=== PATIENT | female | born 1965 | race Caucasian/White ===

== ENCOUNTER 2019-02-02 11:48 | Inpatient (IN) | payer MEDICARE, MEDICAID ==
[2019-02-02] MEDS ORDERED: Sodium Chloride 0.9% 1,000 ML IV ONE (11:57)
--- NOTE | 2019-02-02 12:01 | ED Physician Chart ---
ED Chief Complaint/HPI - Patient Information Date Seen:: 02/02/19 Time Seen:: 11:45 Chief Complaint:: AMS History of Present Illness:: onset x one day of AMS, ALOC, fever, and weakness; no report of trauma, H/As, neck pain, C/P, SOB, Abd. Pain, A/N/V/D/C, chills, or urinary s/s Allergies:: Allergies Allergy/AdvReac Type Severity Reaction Status Date / Time MDX Ampicillin [Ampicillin] Allergy Unknown Verified 05/23/12 13:30 MDX Erythromycin Allergy Unknown Verified 05/23/12 13:04 [Erythromycin] Historian:: Patient, EMS Review:: Nurse's Note Reviewed, Old Chart Reviewed, EMS run form Reviewed ED Review of Systems - Review of Systems General/Constitutional: No fever, No chills, No weight loss, Weakness, No diaphoresis, No edema, No loss of appetite Skin: No skin lesions, No rash, No bruising Head: No headache, No light-headedness Eyes: No loss of vision, No pain, No diplopia ENT: No earache, No nasal drainage, No sore throat, No tinnitus Neck: No neck pain, No swelling, No thyromegaly, No stiffness, No mass noted Cardio Vascular: No chest pain, No palpitations, No PND, No orthopnea, No edema Pulmonary: No SOB, No cough, No sputum, No wheezing GI: No nausea, No vomiting, No diarrhea, No pain, No melena, No hematochezia, No constipation, No hematemesis G/U: No dysuria, No frequency, No hematuria [employer]: No vaginal discharge, No abnormal vaginal bleed, No contraction Musculoskeletal: No bone or joint pain, No back pain, No muscle pain Endocrine: No polyuria, No polydipsia Psychiatric: No prior psych history, No depression, No anxiety, No suicidal ideation, No homicidal ideation, No auditory hallucination, No visual hallucination Hematopoietic: No bruising, No lymphadenopathy Allergic/Immuno: No urticaria, No angioedema Neurological: No syncope, No focal symptoms, No weakness, No paresthesia, No headache, No seizure, No dizziness, No confusion, No vertigo ED Past Medical History - Past Medical History Obtainable: Yes Past Medical History: Dementia (CP) Family History: HTN Social History: Non Smoker, No Alcohol, No Drug Use, Single, Care Facility Surgical History: None Psychiatricy History: Dementia Medication: Reviewed Family Medical History - Family Member Mother History Unknown: Yes ED Physical Exam - Physical Examination General/Constitutional: Awake, Well-developed, well-nourished, Alert, No distress, GCS 15, Non-toxic appearing, Ambulatory Head: Atraumatic Eyes: Lids, conjuctiva normal, PERRL, EOMI Skin: Nl inspection, No rash, No skin lesions, No ecchymosis, Well hydrated, No lymphadenopathy ENMT: External ears, nose nl, TM canals nl, Nasal exam nl, Lips, teeth, gums nl , Oropharynx nl, Tonsils nl Neck: Nontender, Full ROM w/o pain, No JVD, No nuchal rigidity, No bruit, No mass, No stridor Respiratory: Nl effort/Exclusion, Clear to Auscultation, No Wheeze/Rhonchi/Rales Cardio Vascular: RRR, No murmur, gallop, rubs, NL S1 S2, Carotid/Femoral/Distal pulses equal bilaterally GI: No tenderness/rebounding/guarding, No organomegaly, No hernia, Normal BS's, Nondistended, No mass/bruits, No McBurney tenderness : No CVA tenderness Extremities: No tenderness or effusion, Full ROM, normal strength in all extremities, No edema, Normal digits & nails Neuro/Psych: Alert/oriented, DTR's symmetric, Normal sensory exam, Normal motor strength, Judgement/insight normal, Mood normal, Normal gait, No focal deficits Misc: Normal back, No paraspinal tenderness ED Labs/Radiology/EKG Results - Lab Results Comments:: Reviewed - EKG Interpretations EKG Time:: 12:08 Rate & Rhythm: 102; ST Comments:: non-specific st-t changes ED Septic Shock - . Is Septic Shock (SBP<90, OR Lactate>4 mmol\L) present?: No ED Reassessment (Disposition) - Reassessment Reassessment Condition:: Improved - Diagnosis Diagnosis:: AMS; ALOC; Hypertension; Dehydration; UTI; Urosepsis; Sepsis; Elevated Lactic Acid; Lactic Acidosis; Hyponatremia; Tachycardia - Aftercare/Follow up Instructions Aftercare/Follow-Up Instructions:: Counseled pt regarding lab results/diagnosis & need follow up, Counseled pt & family regarding lab results/diagnosis & need follow up - Patient Disposition Discharge/Transfer:: Acute Care w/in this hosp Accepting Physician:: Dr. Robles Time Called:: [id number] Time Responded:: 13:30 Admitted to:: Med/Surg Spoke to:: Dr. Robles Admitting Medical Physician:: Dr. Robles Condition at Disposition:: Stable, Improved
[2019-02-02 12:34] LABS: INR 0.91 (0.5-1.4)
[2019-02-02 12:40] LABS: ALB/GLOB RATIO 1.4 (1.0-1.8); ALBUMIN 4.4 gm/dL (3.7-5.3); ALKALINE PHOSPHATASE 176 U/L (34-104); AMYLASE SERUM 79 U/L (29-103); ANION GAP 14.9 (7.0-16.0); BILIRUBIN,TOTAL 0.5 mg/dL (0.3-1.0); BUN - UREA NITROGEN 8 mg/dL (7-25); CALCIUM SERUM 9.7 mg/dL (8.6-10.3); CARBON DIOXIDE 25.2 mEq/L (21.0-31.0); CHLORIDE 95 mEq/L (98-107); CREATININE - SERUM 0.4 mg/dL (0.6-1.2); CREATININE KINASE 28 U/L (30-223); GFR AFRICAN-AMERICAN > 60.0 ml/min (>90); GFR NON AFRICAN-AMERICAN > 60.0 ml/min; GLUCOSE 103 mg/dL (70-105); LIPASE 24 U/L (11-82); POTASSIUM SERUM 4.1 mEq/L (3.5-5.1); SGOT 11 U/L (13-39); SGPT/ALT 34 U/L (7-52); TOTAL PROTEIN,SERUM 7.6 gm/dL (6.0-8.3)
[2019-02-02 12:54] LABS: % BASOPHILS 1.3 % (0.0-2.0); % EOSINOPHILS 0.5 % (0.0-5.0); % LYMPHOCYTES 35.6 % (20.0-50.0); % MONOCYTES 10.3 % (2.0-10.0); % NEUTROPHILS 52.3 % (40.0-80.0); BASOPHILE ABSOLUTE 0.1 Th/cumm (0-0.2); HEMATOCRIT 43.1 % (41.0-60); HEMOGLOBIN 14.7 gm/dL (12-16); LYMPHOCYTE ABSOLUTE 1.7 Th/cmm (1.5-3.0); MEAN CELL VOLUME 89.9 fl (81-100); MEAN CORPUSCULAR HEMOGLOBIN 30.7 pg (27.0-31.0); MEAN CORPUSCULAR HGB CONC 34.2 pg (28.0-36.0); MONOCYTE ABSOLUTE 0.5 Th/cmm (0.3-1.0); NEUTROPHILE ABSOLUTE 2.6 Th/cmm (1.8-8.0); PLATELET COUNT 249 Th/cmm (150-400); RED BLOOD COUNT 4.79 Mil/cmm (3.80-5.10); RED CELL DISTRIBUTION WIDTH 11.2 % (11.5-20.0); WHITE BLOOD COUNT 4.9 Th/cmm (4.8-10.8)
[2019-02-02 12:59] LABS: SODIUM SERUM 131 mEq/L (136-145)
[2019-02-02 13:19] LABS: URINE SOURCE MIDSTREAM
[2019-02-02 13:27] LABS: URINE BILIRUBIN NEGATIVE (NEGATIVE); URINE BLOOD NEGATIVE (NEGATIVE); URINE GLUCOSE (UA) NEGATIVE (NEGATIVE); URINE KETONE NEGATIVE (NEGATIVE); URINE LEUKOCYTE ESTERASE TRACE (NEGATIVE); URINE MICROSCOPIC INDICATED? YES; URINE NITRATE NEGATIVE (NEGATIVE); URINE PROTEIN NEGATIVE (NEGATIVE); URINE UROBILINOGEN 0.2 E.U./dL (0.2 - 1.0)
[2019-02-02 13:41] LABS: URINE CLARITY TURBID (CLEAR); URINE COLOR YELLOW
[2019-02-02 13:45] LABS: URINE BACTERIA MANY /hpf (NONE SEEN); URINE EPITHELIAL CELLS FEW /lpf (FEW); URINE RBC NONE SEEN /hpf (0-5)
[2019-02-02 13:46] LABS: URINE AMORPHOUS SEDIMENT MODERATE PHOSPHATES (NONE SEEN)
[2019-02-02] MEDS ORDERED: Levofloxacin 500mg/100mL 500 MG/100 ML BAG IV ONE ×2 (13:49→13:53)
[2019-02-02] MEDS ORDERED: Magnesium Hydroxide (MOM) 30 mL UDC GT PRN (15:21)
[2019-02-02] MEDS ORDERED: Non-Formulary Item 1 EA (Acetaminophen [Tylenol] 650 MG) GT PRN (15:21)
[2019-02-02] MEDS ORDERED: Fleet Enema 135 mL RC ONE (15:21)
[2019-02-02] MEDS ORDERED: Morphine Sulfate 2 mg/mL 1mL Syr IVP PRN (15:25)
[2019-02-02] MEDS ORDERED: Albuterol Nebulizer 2.5mg/3mL HHN PRN (15:25)
[2019-02-02] MEDS ORDERED: guaiFENesin 200 MG/10 ML UDC PO PRN (15:25)
[2019-02-02] MEDS ORDERED: Ipratropium Neb 0.5 mg/2.5 mL UD IH PRN (15:25)
--- NOTE | 2019-02-02 15:56 | History & Physical ---
ADMIT DATE: 02/02/2019 CHIEF COMPLAINT: Abdominal pain and fever. HISTORY OF PRESENT ILLNESS: This is a 58-year-old female with history of mental retardation, cerebral palsy, seizure disorder, constipation admitted from nursing facility secondary to abdominal pain and discomfort. The patient recently had an ultrasound, which showed a gallstone. The patient is brought in the ER for evaluation of urinary tract infection as well with elevated lactic acid. PAST MEDICAL HISTORY: As mentioned in history present illness. PAST SURGICAL HISTORY: G-tube. ALLERGIES: AMPICILLIN AND ERYTHROMYCIN. MEDICATIONS: Clindamycin, Tylenol, calcitonin, calcium, Colace, omeprazole, lactobacillus, Keppra, multivitamins, Naprosyn, Tegretol, MiraLax, vitamin D. FAMILY HISTORY: Noncontributory. SOCIAL HISTORY: The patient is a prison patient, requiring 24-hour total care. REVIEW OF SYSTEMS: This is limited secondary to the patient's current mental state. We will try to obtain more detailed review of system with the family members, Caro Watts who is the mother____, I spoken with her several times [phone], alternate number [phone]_. We will also try to get information from nursing staff at [facility], _[phone]. PHYSICAL EXAMINATION: VITAL SIGNS: Blood pressure 160/98, respirations 22, pulse is 113, temperature 99.0. GENERAL: Revealed a middle-aged female, appears chronically ill. NECK: Supple. No mass. LUNGS: Equal breath sounds with few rhonchi. HEART: Regular rate and rhythm. Systolic without appreciable murmurs. ABDOMEN: Soft, globular. EXTREMITIES: Positive excoriations. NEUROLOGIC: Limited. Positive contractures with G-tube. LABORATORY DATA: WBC 4.8, hemoglobin 14, platelets 249. Sodium 131, potassium 4.1, BUN 8, creatinine 0.4, blood sugar 103. Lactic acid was 2.34. UA showed many bacteria, 5 wbc's. ASSESSMENT AND PLAN: Abdominal pain, gallstone, urinary tract infection, hyponatremia, lactic acidosis, mental retardation, cerebral palsy, seizure and constipation. Continue the patient on IV hydration and IV antibiotic. We will do a HIDA scan. We will refer the patient to surgery for evaluation. We will follow the patient's urine culture. We will monitor the patient's telemetry. [facility]# [id number]
[2019-02-02] MEDS ORDERED: Maalox 30 mL Cup PO PRN (15:59)
[2019-02-02] MEDS: D5-0.9%NS 1,000 ML IV SCH (16:44)
[2019-02-02] MEDS: Levetiracetam 500 mg/5mL 5mL UDSyr *for ORAL USE ONLY GT SCH (16:45)
[2019-02-02] MEDS ORDERED: LEVETIRACETAM 750 MG GT SCH (17:00)
[2019-02-02] MEDS ORDERED: Pneumococcal Vaccine 0.5 mL Vial IM ONE (18:11)
[2019-02-02] MEDS ORDERED: Non-Formulary Item 1 EA (Calcium Carbonate [Calcium Carbonate] 1,250 MG) GT SCH (21:00)
[2019-02-02] MEDS ORDERED: Non-Formulary Item 1 EA (Lactobacillus Acidophilus [Acidophilus] 1 EACH) GT SCH (21:00)
[2019-02-03] MEDS: D5-0.9%NS 1,000 ML IV SCH ×2 (07:00→21:18)
--- NOTE | 2019-02-03 08:17 | Diagnostic Imaging Report ---
Ultrasound abdomen HISTORY: Abdominal distention COMPARISON: None Technique: Sonography of the abdomen was performed in multiple planes. FINDINGS: Exam is severely limited due to bowel gas and body habitus. There is suboptimal assessment of the liver. The liver demonstrates mildly heterogeneous echotexture measures 14.4 cm. Assessment for focal liver lesions is limited. The gallbladder is poorly visualized limiting assessment for gallstones. The common bile duct and pancreas are also poorly visualized. Limited evaluation of the kidneys demonstrates no hydronephrosis. Spleen measures 7.6 cm. Abdominal aorta is not well-visualized. IMPRESSION: Markedly limited exam due to bowel gas and body habitus. CT should be considered for further assessment. No evidence of hydronephrosis.
[2019-02-03] MEDS ORDERED: Non-Formulary Item 1 EA (Esomeprazole Magnesium [Esomeprazole Magnesium] 40 MG) GT SCH (09:00)
[2019-02-03] MEDS ORDERED: CALCIUM CARB GT SCH (09:00)
[2019-02-03] MEDS ORDERED: Non-Formulary Item 1 EA (Multivit,Th Iron,Other Min [Thera-M] 1 TAB) GT SCH (09:00)
[2019-02-03] MEDS ORDERED: MAGNESIUM HYDROX GT SCH (09:00)
[2019-02-03] MEDS: Multivitamin w/ Minerals 15 mL UDC GT SCH (09:29)
[2019-02-03] MEDS: Levetiracetam 500 mg/5mL 5mL UDSyr *for ORAL USE ONLY GT SCH ×2 (09:29→17:13)
[2019-02-03] MEDS: Pantoprazole 40 mg EC Tab PO SCH (09:30)
[2019-02-03] MEDS: Calcitonin (Salmon) 200 Iu/Actuation 3.7mL NS SCH (09:32)
[2019-02-03] MEDS: Lactobacillus Rhamnosus GG 15 Billion CFU CAP.SPRINK GT SCH (09:32)
--- NOTE | 2019-02-03 13:17 | Internal Medicine Prog Note ---
Internal Medicine Subjective - Subjective Patient seen and examined:: with staff, chart reviewed Patient is:: awake, verbal, interactive Patient Complaints of:: congestion, unable to sleep Per staff patient has:: no adverse event, no episodes of fall, tolerating meds Internal Medicine Objective - Results Result Diagrams: 02/02/19 12:12 02/02/19 12:12 Recent Labs: Laboratory Last Values WBC 4.9 Th/cmm (4.8-10.8) 02/02/19 12:12 RBC 4.79 Mil/cmm (3.80-5.10) 02/02/19 12:12 Hgb 14.7 gm/dL (12-16) 02/02/19 12:12 Hct 43.1 % (41.0-60) 02/02/19 12:12 MCV 89.9 fl (81-100) 02/02/19 12:12 MCH 30.7 pg (27.0-31.0) 02/02/19 12:12 MCHC Differential 34.2 pg (28.0-36.0) 02/02/19 12:12 RDW 11.2 % (11.5-20.0) L 02/02/19 12:12 Plt Count 249 Th/cmm (150-400) 02/02/19 12:12 MPV 9.6 fl 02/02/19 12:12 Neutrophils % 52.3 % (40.0-80.0) 02/02/19 12:12 Lymphocytes % 35.6 % (20.0-50.0) 02/02/19 12:12 Monocytes % 10.3 % (2.0-10.0) H 02/02/19 12:12 Eosinophils % 0.5 % (0.0-5.0) 02/02/19 12:12 Basophils % 1.3 % (0.0-2.0) 02/02/19 12:12 PT 9.5 SECONDS (9.5-11.5) 02/02/19 12:12 INR 0.91 (0.5-1.4) 02/02/19 12:12 PTT (Actin FS) 28.9 SECONDS (26.0-38.0) 02/02/19 12:12 Sodium 131 mEq/L (136-145) L D 02/02/19 12:12 Potassium 4.1 mEq/L (3.5-5.1) 02/02/19 12:12 Chloride 95 mEq/L (98-107) L 02/02/19 12:12 Carbon Dioxide 25.2 mEq/L (21.0-31.0) 02/02/19 12:12 Anion Gap 14.9 (7.0-16.0) 02/02/19 12:12 BUN 8 mg/dL (7-25) 02/02/19 12:12 Creatinine 0.4 mg/dL (0.6-1.2) L 02/02/19 12:12 Est GFR ( Amer) > 60.0 ml/min (>90) 02/02/19 12:12 Est GFR (Non-Af Amer) > 60.0 ml/min 02/02/19 12:12 BUN/Creatinine Ratio 20.0 02/02/19 12:12 Glucose 103 mg/dL (70-105) 02/02/19 12:12 Whole Bld Lactic Acid 0.78 mmol/L (0.60-1.99) 02/02/19 14:12 Calcium 9.7 mg/dL (8.6-10.3) 02/02/19 12:12 Total Bilirubin 0.5 mg/dL (0.3-1.0) 02/02/19 12:12 AST 11 U/L (13-39) L 02/02/19 12:12 ALT 34 U/L (7-52) 02/02/19 12:12 Alkaline Phosphatase 176 U/L (34-104) H 02/02/19 12:12 Creatine Kinase 28 U/L (30-223) L 02/02/19 12:12 Troponin I < 0.01 ng/mL (0.01-0.05) L 02/02/19 12:12 Total Protein 7.6 gm/dL (6.0-8.3) 02/02/19 12:12 Albumin 4.4 gm/dL (3.7-5.3) 02/02/19 12:12 Globulin 3.2 gm/dL 02/02/19 12:12 Albumin/Globulin Ratio 1.4 (1.0-1.8) 02/02/19 12:12 Amylase 79 U/L (29-103) 02/02/19 12:12 Lipase 24 U/L (11-82) 02/02/19 12:12 Serum , Qual NEGATIVE (NEGATIVE) 02/02/19 12:12 Urine Source MIDSTREAM 02/02/19 13:15 Urine Color YELLOW 02/02/19 13:15 Urine Clarity TURBID (CLEAR) H 02/02/19 13:15 Urine pH 8.0 (4.6 - 8.0) 02/02/19 13:15 Ur Specific [place] 1.010 (1.005-1.030) 02/02/19 13:15 Urine Protein NEGATIVE mg/dL (NEGATIVE) 02/02/19 13:15 Urine Glucose (UA) NEGATIVE mg/dL (NEGATIVE) 02/02/19 13:15 Urine Ketones NEGATIVE mg/dL (NEGATIVE) 02/02/19 13:15 Urine Blood NEGATIVE (NEGATIVE) 02/02/19 13:15 Urine Nitrate NEGATIVE (NEGATIVE) 02/02/19 13:15 Urine Bilirubin NEGATIVE (NEGATIVE) 02/02/19 13:15 Urine Urobilinogen 0.2 E.U./dL (0.2 - 1.0) 02/02/19 13:15 Ur Leukocyte Esterase TRACE (NEGATIVE) H 02/02/19 13:15 Urine RBC NONE SEEN /hpf (0-5) 02/02/19 13:15 Urine WBC 2-5 /hpf (0-5) 02/02/19 13:15 Ur Epithelial Cells FEW /lpf (FEW) 02/02/19 13:15 Amorphous Sediment MODERATE PHOSPHATES (NONE SEEN) 02/02/19 13:15 Urine Bacteria MANY /hpf (NONE SEEN) H 02/02/19 13:15 - Physical Exam Vitals and I&O: Vital Signs Temp 98.1 F 02/03/19 12:00 Pulse 75 02/03/19 12:00 Resp 18 02/03/19 12:00 BP 146/90 02/03/19 12:00 Pulse Ox 99 02/03/19 12:00 Intake & Output 02/02/19 02/03/19 02/03/19 18:59 06:59 18:59 Intake Total 150 1000 Balance 150 1000 Weight (lbs) 58.967 kg 58.967 kg 58.967 kg Intake: Intake, IV Amount 50 1000 Cefepime 1 gm In Dextrose 50 5% 50 ml @ 100 mls/hr IV Q12H [facility] Rx#:[id number] D5-0.9%Ns 1,000 ml @ 80 1000 mls/hr IV .[id number] [facility] Rx #:[id number] Other 100 Other: # Voids 2 # Bowel Movements 0 Stool Characteristics Soft Soft Weight Source Bedscale Estimated Estimated Active Medications: Current Medications Albuterol Sulfate (Albuterol 2.5mg/3ml Neb Ud) 2.5 mg HHN Q2HRT PRN PRN Reason: Shortness of Breath or Wheeze Stop: 04/03/19 15:24 Bisacodyl (Dulcolax 10 Mg Supp) 10 mg RC PRN PRN PRN Reason: IF MOM INEFFECTIVE Stop: 04/03/19 15:20 Bisacodyl (Dulcolax 10 Mg Supp) 10 mg RC MWF [facility] Stop: 04/05/19 08:59 Calcitonin [place] (Miacalcin) 200 iu NS DAILY [facility] Stop: 04/04/19 08:59 Last Admin: 02/03/19 09:32 Dose: 200 iu Calcium Carbonate (Calcium Carb) 1,200 mg PO TID [facility] Stop: 04/03/19 20:59 Last Admin: 02/03/19 09:32 Dose: 1,200 mg Docusate Sodium (Colace) 250 mg PO BID [facility] Stop: 04/03/19 16:59 Last Admin: 02/03/19 09:30 Dose: 250 mg Guaifenesin (Robitussin) 200 mg PO Q4HR PRN PRN Reason: Cough or Congestion Stop: 04/03/19 15:24 Cefepime HCl 1 gm/ Dextrose 50 mls @ 100 mls/hr IV Q12H [facility] Stop: 04/03/19 15:29 Last Admin: 02/03/19 03:12 Dose: 100 mls/hr Dextrose/Sodium Chloride (D5-0.9%Ns) 1,000 mls @ 80 mls/hr IV .[id number] [facility] Stop: 04/03/19 15:29 Last Admin: 02/03/19 07:00 Dose: 80 mls/hr Ipratropium [place] (Atrovent Neb 0.5mg/2.5ml) 0.5 mg IH Q2HRT PRN PRN Reason: Shortness of Breath or Wheeze Stop: 04/03/19 15:24 Lactobacillus Rhamnosus (Culturelle 15b) 1 each GT DAILY [facility] Stop: 04/04/19 08:59 Last Admin: 02/03/19 09:32 Dose: 1 each Levetiracetam (Keppra) 750 mg GT BID [facility] Stop: 04/03/19 16:59 Last Admin: 02/03/19 09:29 Dose: 750 mg Magnesium Hydroxide (Milk Of Magnesia) 30 ml GT Q72H PRN PRN Reason: IF NO BM IN THREE DAYS Stop: 04/03/19 15:20 Morphine Sulfate (Morphine) 2 mg IVP Q4H PRN PRN Reason: Pain (Severe) Stop: 04/03/19 15:24 Multivitamins/Minerals (Theragran M) 15 ml GT DAILY [facility] Stop: 04/04/19 08:59 Last Admin: 02/03/19 09:29 Dose: 15 ml Naproxen (Naprosyn) 250 mg GT TID PRN PRN Reason: FOR MENSES CYCLE Stop: 04/03/19 15:20 Ondansetron HCl (Zofran) 4 mg IV Q8H PRN PRN Reason: Nausea / Vomiting Stop: 04/03/19 15:24 Oxcarbazepine (Trileptal) 900 mg GT BID [facility] Stop: 04/04/19 08:59 Last Admin: 02/03/19 09:30 Dose: 900 mg Pantoprazole Sodium (Protonix) 40 mg PO DAILY [facility] Stop: 04/04/19 08:59 Last Admin: 02/03/19 09:30 Dose: 40 mg Polyethylene Glycol (Miralax) 17 gm GT MWF [facility] Stop: 04/05/19 08:59 Vitamin D (Vitamin D) 1,000 iu GT DAILY [facility] Stop: 04/04/19 08:59 Last Admin: 02/03/19 09:30 Dose: 1,000 iu General: weak, appears older HEENT: NC/AT, PERRLA Neck: Supple, No JVD Lungs: congested Abdomen: soft, tender, non-distended, positive bowel sound Extremities: excoriation, contracture Neurological: no change Internal Medicine Assmt/Plan - Assessment Assessment: ASSESSMENT AND PLAN: Abdominal pain, gallstone, urinary tract infection, hyponatremia, lactic acidosis, mental retardation, cerebral palsy, seizure and constipation. - Plan Plan: PLAN: Continue the patient on IV hydration and IV antibiotic. We will do a HIDA scan. We will refer the patient to surgery for evaluation. We will follow the patient's urine culture. We will monitor the patient's telemetry. case dw mother at bedside
--- NOTE | 2019-02-03 14:29 | Diagnostic Imaging Report ---
Nuclear medicine HIDA scan HISTORY: Pain, assess for possible cholecystitis COMPARISON: Ultrasound abdomen on 02/02/2019 Technique/procedure: 5.1 mCi of technetium labeled Choletec was administered intravenously and multiple scintigraphic images were obtained for up to 1 hour. FINDINGS: The exam is limited due to technical factors. Prompt hepatic uptake is demonstrated. Gallbladder uptake is seen within the first 10 minutes. Small bowel uptake is seen at 20 minutes. IMPRESSION: No evidence of cholecystitis.
[2019-02-04 06:02] LABS: % BASOPHILS 0.4 % (0.0-2.0); % EOSINOPHILS 0.8 % (0.0-5.0); % LYMPHOCYTES 24.5 % (20.0-50.0); % MONOCYTES 11.4 % (2.0-10.0); % NEUTROPHILS 62.9 % (40.0-80.0); EOSINOPHILE ABSOLUTE 0.1 Th/cmm (0.1-0.4); HEMATOCRIT 42.4 % (41.0-60); HEMOGLOBIN 14.2 gm/dL (12-16); LYMPHOCYTE ABSOLUTE 1.7 Th/cmm (1.5-3.0); MEAN CORPUSCULAR HEMOGLOBIN 30.7 pg (27.0-31.0); MEAN CORPUSCULAR HGB CONC 33.4 pg (28.0-36.0); MONOCYTE ABSOLUTE 0.8 Th/cmm (0.3-1.0); NEUTROPHILE ABSOLUTE 4.3 Th/cmm (1.8-8.0); PLATELET COUNT 198 Th/cmm (150-400); RED BLOOD COUNT 4.61 Mil/cmm (3.80-5.10); RED CELL DISTRIBUTION WIDTH 11.4 % (11.5-20.0); WHITE BLOOD COUNT 6.9 Th/cmm (4.8-10.8)
[2019-02-04 06:09] LABS: ALB/GLOB RATIO 1.4 (1.0-1.8); ALBUMIN 3.9 gm/dL (3.7-5.3); ALKALINE PHOSPHATASE 143 U/L (34-104); ANION GAP 12.3 (7.0-16.0); BILIRUBIN,TOTAL 0.4 mg/dL (0.3-1.0); BUN - UREA NITROGEN 6 mg/dL (7-25); CALCIUM SERUM 9.1 mg/dL (8.6-10.3); CARBON DIOXIDE 23.8 mEq/L (21.0-31.0); CHLORIDE 103 mEq/L (98-107); CREATININE - SERUM 0.3 mg/dL (0.6-1.2); GFR AFRICAN-AMERICAN > 60.0 ml/min (>90); GFR NON AFRICAN-AMERICAN > 60.0 ml/min; GLUCOSE 111 mg/dL (70-105); MAGNESIUM 1.8 mg/dL (1.9-2.7); POTASSIUM SERUM 4.1 mEq/L (3.5-5.1); SGOT 13 U/L (13-39); SGPT/ALT 25 U/L (7-52); SODIUM SERUM 135 mEq/L (136-145); TOTAL PROTEIN,SERUM 6.7 gm/dL (6.0-8.3)
[2019-02-04] MEDS: Levetiracetam 500 mg/5mL 5mL UDSyr *for ORAL USE ONLY GT SCH ×2 (08:23→16:14)
[2019-02-04] MEDS: Multivitamin w/ Minerals 15 mL UDC GT SCH (08:23)
[2019-02-04] MEDS: Lactobacillus Rhamnosus GG 15 Billion CFU CAP.SPRINK GT SCH (08:24)
[2019-02-04] MEDS: Pantoprazole 40 mg EC Tab PO SCH (08:24)
[2019-02-04] MEDS: Calcitonin (Salmon) 200 Iu/Actuation 3.7mL NS SCH (08:34)
[2019-02-04] MEDS ORDERED: POLYETHYLENE GLYCOL 3350 17 GM PACK GT SCH (09:00)
[2019-02-04] MEDS: D5-0.9%NS 1,000 ML IV SCH (10:11)
[2019-02-04] MEDS ORDERED: Mag Sulfate 2gm/50mL Premix 2 GM/50 ML BAG IV ONE (13:10)
--- NOTE | 2019-02-04 13:12 | Internal Medicine Prog Note ---
Internal Medicine Subjective - Subjective Patient seen and examined:: with staff, chart reviewed Patient is:: awake, verbal, interactive Patient Complaints of:: congestion, unable to sleep Per staff patient has:: no adverse event, no episodes of fall, tolerating meds Internal Medicine Objective - Results Result Diagrams: 02/04/19 05:30 02/04/19 05:30 Recent Labs: Laboratory Last Values WBC 6.9 Th/cmm (4.8-10.8) 02/04/19 05:30 RBC 4.61 Mil/cmm (3.80-5.10) 02/04/19 05:30 Hgb 14.2 gm/dL (12-16) 02/04/19 05:30 Hct 42.4 % (41.0-60) 02/04/19 05:30 MCV 92.0 fl (81-100) 02/04/19 05:30 MCH 30.7 pg (27.0-31.0) 02/04/19 05:30 MCHC Differential 33.4 pg (28.0-36.0) 02/04/19 05:30 RDW 11.4 % (11.5-20.0) L 02/04/19 05:30 Plt Count 198 Th/cmm (150-400) 02/04/19 05:30 MPV 9.3 fl 02/04/19 05:30 Neutrophils % 62.9 % (40.0-80.0) 02/04/19 05:30 Lymphocytes % 24.5 % (20.0-50.0) 02/04/19 05:30 Monocytes % 11.4 % (2.0-10.0) H 02/04/19 05:30 Eosinophils % 0.8 % (0.0-5.0) 02/04/19 05:30 Basophils % 0.4 % (0.0-2.0) 02/04/19 05:30 PT 9.5 SECONDS (9.5-11.5) 02/02/19 12:12 INR 0.91 (0.5-1.4) 02/02/19 12:12 PTT (Actin FS) 28.9 SECONDS (26.0-38.0) 02/02/19 12:12 Sodium 135 mEq/L (136-145) L 02/04/19 05:30 Potassium 4.1 mEq/L (3.5-5.1) 02/04/19 05:30 Chloride 103 mEq/L (98-107) 02/04/19 05:30 Carbon Dioxide 23.8 mEq/L (21.0-31.0) 02/04/19 05:30 Anion Gap 12.3 (7.0-16.0) 02/04/19 05:30 BUN 6 mg/dL (7-25) L 02/04/19 05:30 Creatinine 0.3 mg/dL (0.6-1.2) L 02/04/19 05:30 Est GFR ( Amer) > 60.0 ml/min (>90) 02/04/19 05:30 Est GFR (Non-Af Amer) > 60.0 ml/min 02/04/19 05:30 BUN/Creatinine Ratio 20.0 02/04/19 05:30 Glucose 111 mg/dL (70-105) H 02/04/19 05:30 Whole Bld Lactic Acid 0.78 mmol/L (0.60-1.99) 02/02/19 14:12 Calcium 9.1 mg/dL (8.6-10.3) 02/04/19 05:30 Magnesium 1.8 mg/dL (1.9-2.7) L 02/04/19 05:30 Total Bilirubin 0.4 mg/dL (0.3-1.0) 02/04/19 05:30 AST 13 U/L (13-39) 02/04/19 05:30 ALT 25 U/L (7-52) 02/04/19 05:30 Alkaline Phosphatase 143 U/L (34-104) H 02/04/19 05:30 Creatine Kinase 28 U/L (30-223) L 02/02/19 12:12 Troponin I < 0.01 ng/mL (0.01-0.05) L 02/02/19 12:12 Total Protein 6.7 gm/dL (6.0-8.3) 02/04/19 05:30 Albumin 3.9 gm/dL (3.7-5.3) 02/04/19 05:30 Globulin 2.8 gm/dL 02/04/19 05:30 Albumin/Globulin Ratio 1.4 (1.0-1.8) 02/04/19 05:30 Amylase 79 U/L (29-103) 02/02/19 12:12 Lipase 24 U/L (11-82) 02/02/19 12:12 Serum , Qual NEGATIVE (NEGATIVE) 02/02/19 12:12 Urine Source MIDSTREAM 02/02/19 13:15 Urine Color YELLOW 02/02/19 13:15 Urine Clarity TURBID (CLEAR) H 02/02/19 13:15 Urine pH 8.0 (4.6 - 8.0) 02/02/19 13:15 Ur Specific [place] 1.010 (1.005-1.030) 02/02/19 13:15 Urine Protein NEGATIVE mg/dL (NEGATIVE) 02/02/19 13:15 Urine Glucose (UA) NEGATIVE mg/dL (NEGATIVE) 02/02/19 13:15 Urine Ketones NEGATIVE mg/dL (NEGATIVE) 02/02/19 13:15 Urine Blood NEGATIVE (NEGATIVE) 02/02/19 13:15 Urine Nitrate NEGATIVE (NEGATIVE) 02/02/19 13:15 Urine Bilirubin NEGATIVE (NEGATIVE) 02/02/19 13:15 Urine Urobilinogen 0.2 E.U./dL (0.2 - 1.0) 02/02/19 13:15 Ur Leukocyte Esterase TRACE (NEGATIVE) H 02/02/19 13:15 Urine RBC NONE SEEN /hpf (0-5) 02/02/19 13:15 Urine WBC 2-5 /hpf (0-5) 02/02/19 13:15 Ur Epithelial Cells FEW /lpf (FEW) 02/02/19 13:15 Amorphous Sediment MODERATE PHOSPHATES (NONE SEEN) 02/02/19 13:15 Urine Bacteria MANY /hpf (NONE SEEN) H 02/02/19 13:15 - Physical Exam Vitals and I&O: Vital Signs Temp 97.9 F 02/04/19 11:50 Pulse 73 02/04/19 12:21 Resp 16 02/04/19 12:02 BP 161/81 02/04/19 11:50 Pulse Ox 96 02/04/19 11:50 Intake & Output 02/03/19 02/04/19 02/04/19 18:59 06:59 18:59 Intake Total 50 1300 1000 Balance 50 1300 1000 Weight (lbs) 58.967 kg 58.967 kg Intake: Intake, IV Amount 50 1000 1000 Cefepime 1 gm In Dextrose 50 5% 50 ml @ 100 mls/hr IV Q12H [facility] Rx#:[id number] D5-0.9%Ns 1,000 ml @ 80 1000 1000 mls/hr IV .[id number] [facility] Rx #:[id number] Tube Feeding 240 Other 60 Other: # Bowel Movements 0 Stool Characteristics Soft Weight Source Estimated Estimated Active Medications: Current Medications Albuterol Sulfate (Albuterol 2.5mg/3ml Neb Ud) 2.5 mg HHN Q2HRT PRN PRN Reason: Shortness of Breath or Wheeze Stop: 04/03/19 15:24 Bisacodyl (Dulcolax 10 Mg Supp) 10 mg RC PRN PRN PRN Reason: IF MOM INEFFECTIVE Stop: 04/03/19 15:20 Bisacodyl (Dulcolax 10 Mg Supp) 10 mg RC MWF [facility] Stop: 04/05/19 08:59 Last Admin: 02/04/19 08:25 Dose: 10 mg Calcitonin [place] (Miacalcin) 200 iu NS DAILY [facility] Stop: 04/04/19 08:59 Last Admin: 02/04/19 08:34 Dose: 200 iu Calcium Carbonate (Calcium Carb) 1,200 mg PO TID [facility] Stop: 04/03/19 20:59 Last Admin: 02/04/19 13:08 Dose: 1,200 mg Docusate Sodium (Colace) 250 mg PO BID [facility] Stop: 04/03/19 16:59 Last Admin: 02/04/19 08:23 Dose: 250 mg Guaifenesin (Robitussin) 200 mg PO Q4HR PRN PRN Reason: Cough or Congestion Stop: 04/03/19 15:24 Cefepime HCl 1 gm/ Dextrose 50 mls @ 100 mls/hr IV Q12H [facility] Stop: 04/03/19 15:29 Last Admin: 02/04/19 02:57 Dose: 100 mls/hr Dextrose/Sodium Chloride (D5-0.9%Ns) 1,000 mls @ 80 mls/hr IV .[id number] [facility] Stop: 04/03/19 15:29 Last Admin: 02/04/19 10:11 Dose: 80 mls/hr Magnesium Sulfate (Magnesium Sulfate Premix) 2 gm in 50 mls @ 25 mls/hr IV X1 ONE Stop: 02/04/19 15:09 Ipratropium [place] (Atrovent Neb 0.5mg/2.5ml) 0.5 mg IH Q2HRT PRN PRN Reason: Shortness of Breath or Wheeze Stop: 04/03/19 15:24 Lactobacillus Rhamnosus (Culturelle 15b) 1 each GT DAILY [facility] Stop: 04/04/19 08:59 Last Admin: 02/04/19 08:24 Dose: 1 each Levetiracetam (Keppra) 750 mg GT BID [facility] Stop: 04/03/19 16:59 Last Admin: 02/04/19 08:23 Dose: 750 mg Magnesium Hydroxide (Milk Of Magnesia) 30 ml GT Q72H PRN PRN Reason: IF NO BM IN THREE DAYS Stop: 04/03/19 15:20 Morphine Sulfate (Morphine) 2 mg IVP Q4H PRN PRN Reason: Pain (Severe) Stop: 04/03/19 15:24 Multivitamins/Minerals (Theragran M) 15 ml GT DAILY [facility] Stop: 04/04/19 08:59 Last Admin: 02/04/19 08:23 Dose: 15 ml Naproxen (Naprosyn) 250 mg GT TID PRN PRN Reason: FOR MENSES CYCLE Stop: 04/03/19 15:20 Ondansetron HCl (Zofran) 4 mg IV Q8H PRN PRN Reason: Nausea / Vomiting Stop: 04/03/19 15:24 Oxcarbazepine (Trileptal) 900 mg GT BID [facility] Stop: 04/04/19 08:59 Last Admin: 02/04/19 08:25 Dose: 900 mg Pantoprazole Sodium (Protonix) 40 mg PO DAILY [facility] Stop: 04/04/19 08:59 Last Admin: 02/04/19 08:24 Dose: 40 mg Polyethylene Glycol (Miralax) 17 gm GT MWF [facility] Stop: 04/05/19 08:59 Last Admin: 02/04/19 08:23 Dose: 17 gm Vitamin D (Vitamin D) 1,000 iu GT DAILY [facility] Stop: 04/04/19 08:59 Last Admin: 02/04/19 08:23 Dose: 1,000 iu General: weak, appears older HEENT: NC/AT, PERRLA Neck: Supple, No JVD Lungs: congested Abdomen: soft, tender, non-distended, positive bowel sound Extremities: excoriation, contracture Neurological: no change Internal Medicine Assmt/Plan - Assessment Assessment: ASSESSMENT AND PLAN: Abdominal pain, gallstone, urinary tract infection, hyponatremia, lactic acidosis, mental retardation, cerebral palsy, seizure and constipation. uti - Plan Plan: PLAN: Continue the patient on IV hydration and IV antibiotic. We will do a HIDA scan. result negative We will refer the patient to surgery for evaluation. We will follow the patient's urine culture. We will monitor the patient's telemetry. case dw mother at bedside cont on iv abx for uti
--- NOTE | 2019-02-04 22:21 | Consultation ---
Consult Note - Consult Note Service Date: 02/03/19 Referring Physician: Cachorro Robles Consult Note: PHYSICIAN Consultation Note: Date of Admission: 02/02/19 Purpose of Consultation: Chief Complaint: History of Present Illness: Patient RODGER MEJIA was admitted to [facility] with UTI, ABDOMINAL PAIN. Past Medical History: Diagnoses HYPO-OSMOLALITY AND HYPONATREMIA (02/02/19) ACIDOSIS (02/02/19) UNSPECIFIED INTELLECTUAL DISABILITIES (02/02/19) OTHER CHOLELITHIASIS WITHOUT OBSTRUCTION (02/02/19) URINARY TRACT INFECTION, SITE NOT SPECIFIED (02/02/19) WEAKNESS (02/02/19) Allergies Allergy/AdvReac Type Severity Reaction Status Date / Time ampicillin Allergy Verified 02/02/19 12:00 erythromycin base Allergy Verified 02/02/19 12:00 Vital Signs Temp 98.2 F 02/04/19 20:00 Pulse 62 02/04/19 20:00 Resp 18 02/04/19 20:00 BP 109/72 02/04/19 20:00 Pulse Ox 93 02/04/19 20:00 Intake & Output 02/04/19 02/04/19 02/05/19 06:59 18:59 06:59 Intake Total 1350 1600 Balance 1350 1600 Weight (lbs) 130 lb 130 lb Intake: Intake, IV Amount 1050 1000 Cefepime 1 gm In Dextrose 50 5% 50 ml @ 100 mls/hr IV Q12H [facility] Rx#:[id number] D5-0.9%Ns 1,000 ml @ 80 1000 1000 mls/hr IV .[id number] [facility] Rx #:[id number] Tube Feeding 240 600 Other 60 Other: # Voids 5 # Bowel Movements 0 1 Weight Source Estimated Bedscale Laboratory Results - last 24 hr 02/04/19 02/04/19 05:30 05:30 WBC 6.9 RBC 4.61 Hgb 14.2 Hct 42.4 MCV 92.0 MCH 30.7 MCHC Differential 33.4 RDW 11.4 L Plt Count 198 MPV 9.3 Neutrophils % 62.9 Lymphocytes % 24.5 Monocytes % 11.4 H Eosinophils % 0.8 Basophils % 0.4 Sodium 135 L Potassium 4.1 Chloride 103 Carbon Dioxide 23.8 Anion Gap 12.3 BUN 6 L Creatinine 0.3 L Est GFR ( Amer) > 60.0 Est GFR (Non-Af Amer) > 60.0 BUN/Creatinine Ratio 20.0 Glucose 111 H Calcium 9.1 Magnesium 1.8 L Total Bilirubin 0.4 AST 13 ALT 25 Alkaline Phosphatase 143 H Total Protein 6.7 Albumin 3.9 Globulin 2.8 Albumin/Globulin Ratio 1.4 Home Medication Medication Instructions Recorded Type Acetaminophen [Tylenol] 650 mg GT Q4H PRN 05/23/12 History Bisacodyl [Biscolax] 10 mg RC PRN PRN 05/23/12 History Calcium Carb/Magnesium Hydrox 1 ctb GT DAILY 05/23/12 History [Mi-Acid Double Strength 700 mg-300 mg] Docusate Sodium [Dok] 250 mg GT BID 05/23/12 History Lactobacillus Acidophilus 1 each GT TID 05/23/12 History [Acidophilus] Levetiracetam [Keppra] 750 mg GT BID 05/23/12 History Magnesium Hydroxide [Milk of 30 ml GT Q72H PRN 05/23/12 History Magnesia] Multivit,Th Iron,Other Min 1 tab GT DAILY 05/23/12 History [Thera-M W/Minerals] Na Phos,M-B/Na Phos,Di-Ba [Enema 133 ml RC X1 PRN 05/23/12 History Ready To Use] Naproxen 250 mg GT TID PRN 05/23/12 History Oxcarbazepine [Oxcarbazepine*] 900 mg GT BID 05/23/12 History Vitamin D 1,000 iu GT DAILY 05/23/12 History Bisacodyl [Biscolax] 10 mg RC MWF 02/02/19 History Calcitonin ([place]) [Miacalcin] 200 iu NS DAILY 02/02/19 History Calcium Carbonate 1,250 mg GT TID 02/02/19 History Clindamycin Cream 2% Vag 1 appl TP PRN PRN 02/02/19 History Esomeprazole Magnesium 40 mg GT DAILY 02/02/19 History Polyethylene Glycol 3350 17 gm GT MWF 02/02/19 History Current Medications Generic Name Dose Route Start Last Admin Trade Name Freq PRN Reason Stop Dose Admin Albuterol Sulfate 2.5 mg 02/02/19 15:25 Albuterol 2.5mg/3ml Neb Ud HHN 04/03/19 15:24 Q2HRT PRN Shortness of Breath or Wheeze Amlodipine Besylate 5 mg 02/04/19 13:13 02/04/19 15:18 Norvasc PO 04/05/19 13:12 5 mg DAILY [facility] Administration Bisacodyl 10 mg 02/02/19 15:21 Dulcolax 10 Mg Supp RC 04/03/19 15:20 PRN PRN IF MOM INEFFECTIVE Bisacodyl 10 mg 02/04/19 09:00 02/04/19 08:25 Dulcolax 10 Mg Supp RC 04/05/19 08:59 10 mg MWF [facility] Administration Calcitonin [place] 200 iu 02/03/19 09:00 02/04/19 08:34 Miacalcin NS 04/04/19 08:59 200 iu DAILY [facility] Administration Calcium Carbonate 1,200 mg 02/02/19 21:00 02/04/19 20:55 Calcium Carb PO 04/03/19 20:59 1,200 mg TID [facility] Administration Docusate Sodium 250 mg 02/02/19 17:00 02/04/19 16:14 Colace PO 04/03/19 16:59 250 mg BID [facility] Administration Guaifenesin 200 mg 02/02/19 15:25 Robitussin PO 04/03/19 15:24 Q4HR PRN Cough or Congestion Cefepime HCl 1 gm/ Dextrose 50 mls @ 100 mls/hr 02/02/19 15:30 02/04/19 15:57 IV 04/03/19 15:29 100 mls/hr Q12H [facility] Administration Ipratropium [place] 0.5 mg 02/02/19 15:25 Atrovent Neb 0.5mg/2.5ml IH 04/03/19 15:24 Q2HRT PRN Shortness of Breath or Wheeze Lactobacillus Rhamnosus 1 each 02/03/19 09:00 02/04/19 08:24 Culturelle 15b GT 04/04/19 08:59 1 each DAILY [facility] Administration Levetiracetam 750 mg 02/02/19 17:00 02/04/19 16:14 Keppra GT 04/03/19 16:59 750 mg BID [facility] Administration Magnesium Hydroxide 30 ml 02/02/19 15:21 Milk Of Magnesia GT 04/03/19 15:20 Q72H PRN IF NO BM IN THREE DAYS Morphine Sulfate 2 mg 02/02/19 15:25 Morphine IVP 04/03/19 15:24 Q4H PRN Pain (Severe) Multivitamins/Minerals 15 ml 02/03/19 09:00 02/04/19 08:23 Theragran M GT 04/04/19 08:59 15 ml DAILY [facility] Administration Naproxen 250 mg 02/02/19 15:21 Naprosyn GT 04/03/19 15:20 TID PRN FOR MENSES CYCLE Ondansetron HCl 4 mg 02/02/19 15:25 Zofran IV 04/03/19 15:24 Q8H PRN Nausea / Vomiting Oxcarbazepine 900 mg 02/03/19 09:00 02/04/19 16:14 Trileptal GT 04/04/19 08:59 900 mg BID [facility] Administration Pantoprazole Sodium 40 mg 02/03/19 09:00 02/04/19 08:24 Protonix PO 04/04/19 08:59 40 mg DAILY [facility] Administration Polyethylene Glycol 17 gm 02/04/19 09:00 02/04/19 08:23 Miralax GT 04/05/19 08:59 17 gm MWF [facility] Administration Vitamin D 1,000 iu 02/03/19 09:00 02/04/19 08:23 Vitamin D GT 04/04/19 08:59 1,000 iu DAILY [facility] Administration Review of Systems: A 12 point ROS was reviewed with the pertinent positive and negatives noted in the HPI. Social History Smoking Status Never smoker Family Medical History Family Medical History Start: 02/02/19 14: 59 Freq: ONCE Status: Active Protocol: Document 02/02/19 14:59 FEDE (Rec: 02/02/19 18:11 FEDE [email or web address]) Family Medical History Mother History Unknown Yes Hx Family Hypertension Yes Hx Family Diabetes Yes Physical Exam: General: HEENT: Neck: Cardio: Respiratory: Abdominal: soft non tender but difficult to examine due to MR Genital/Urinary: Extremities: Neurological: Assessment: gallstones Plan: await HIDA scan if positive because of mental retardation best to treat surgically if negative will be best to observe and see how she tolerates her feedings and intervene if LFT problems Signed, Shashank Vargas
--- NOTE | 2019-02-04 22:22 | General Progress Note ---
Subjective - Review of Systems Service Date: 02/04/19 Events since last encounter: HIDA scan is negative and assessment with tube feeding is that she is tolerating well no leucocytosis plan treat non surgically at this time Objective - Results Result Diagrams: 02/04/19 05:30 02/04/19 05:30 Recent Labs: Laboratory Last Values WBC 6.9 Th/cmm (4.8-10.8) 02/04/19 05:30 RBC 4.61 Mil/cmm (3.80-5.10) 02/04/19 05:30 Hgb 14.2 gm/dL (12-16) 02/04/19 05:30 Hct 42.4 % (41.0-60) 02/04/19 05:30 MCV 92.0 fl (81-100) 02/04/19 05:30 MCH 30.7 pg (27.0-31.0) 02/04/19 05:30 MCHC Differential 33.4 pg (28.0-36.0) 02/04/19 05:30 RDW 11.4 % (11.5-20.0) L 02/04/19 05:30 Plt Count 198 Th/cmm (150-400) 02/04/19 05:30 MPV 9.3 fl 02/04/19 05:30 Neutrophils % 62.9 % (40.0-80.0) 02/04/19 05:30 Lymphocytes % 24.5 % (20.0-50.0) 02/04/19 05:30 Monocytes % 11.4 % (2.0-10.0) H 02/04/19 05:30 Eosinophils % 0.8 % (0.0-5.0) 02/04/19 05:30 Basophils % 0.4 % (0.0-2.0) 02/04/19 05:30 PT 9.5 SECONDS (9.5-11.5) 02/02/19 12:12 INR 0.91 (0.5-1.4) 02/02/19 12:12 PTT (Actin FS) 28.9 SECONDS (26.0-38.0) 02/02/19 12:12 Sodium 135 mEq/L (136-145) L 02/04/19 05:30 Potassium 4.1 mEq/L (3.5-5.1) 02/04/19 05:30 Chloride 103 mEq/L (98-107) 02/04/19 05:30 Carbon Dioxide 23.8 mEq/L (21.0-31.0) 02/04/19 05:30 Anion Gap 12.3 (7.0-16.0) 02/04/19 05:30 BUN 6 mg/dL (7-25) L 02/04/19 05:30 Creatinine 0.3 mg/dL (0.6-1.2) L 02/04/19 05:30 Est GFR ( Amer) > 60.0 ml/min (>90) 02/04/19 05:30 Est GFR (Non-Af Amer) > 60.0 ml/min 02/04/19 05:30 BUN/Creatinine Ratio 20.0 02/04/19 05:30 Glucose 111 mg/dL (70-105) H 02/04/19 05:30 Whole Bld Lactic Acid 0.78 mmol/L (0.60-1.99) 02/02/19 14:12 Calcium 9.1 mg/dL (8.6-10.3) 02/04/19 05:30 Magnesium 1.8 mg/dL (1.9-2.7) L 02/04/19 05:30 Total Bilirubin 0.4 mg/dL (0.3-1.0) 02/04/19 05:30 AST 13 U/L (13-39) 02/04/19 05:30 ALT 25 U/L (7-52) 02/04/19 05:30 Alkaline Phosphatase 143 U/L (34-104) H 02/04/19 05:30 Creatine Kinase 28 U/L (30-223) L 02/02/19 12:12 Troponin I < 0.01 ng/mL (0.01-0.05) L 02/02/19 12:12 Total Protein 6.7 gm/dL (6.0-8.3) 02/04/19 05:30 Albumin 3.9 gm/dL (3.7-5.3) 02/04/19 05:30 Globulin 2.8 gm/dL 02/04/19 05:30 Albumin/Globulin Ratio 1.4 (1.0-1.8) 02/04/19 05:30 Amylase 79 U/L (29-103) 02/02/19 12:12 Lipase 24 U/L (11-82) 02/02/19 12:12 Serum , Qual NEGATIVE (NEGATIVE) 02/02/19 12:12 Urine Source MIDSTREAM 02/02/19 13:15 Urine Color YELLOW 02/02/19 13:15 Urine Clarity TURBID (CLEAR) H 02/02/19 13:15 Urine pH 8.0 (4.6 - 8.0) 02/02/19 13:15 Ur Specific [place] 1.010 (1.005-1.030) 02/02/19 13:15 Urine Protein NEGATIVE mg/dL (NEGATIVE) 02/02/19 13:15 Urine Glucose (UA) NEGATIVE mg/dL (NEGATIVE) 02/02/19 13:15 Urine Ketones NEGATIVE mg/dL (NEGATIVE) 02/02/19 13:15 Urine Blood NEGATIVE (NEGATIVE) 02/02/19 13:15 Urine Nitrate NEGATIVE (NEGATIVE) 02/02/19 13:15 Urine Bilirubin NEGATIVE (NEGATIVE) 02/02/19 13:15 Urine Urobilinogen 0.2 E.U./dL (0.2 - 1.0) 02/02/19 13:15 Ur Leukocyte Esterase TRACE (NEGATIVE) H 02/02/19 13:15 Urine RBC NONE SEEN /hpf (0-5) 02/02/19 13:15 Urine WBC 2-5 /hpf (0-5) 02/02/19 13:15 Ur Epithelial Cells FEW /lpf (FEW) 02/02/19 13:15 Amorphous Sediment MODERATE PHOSPHATES (NONE SEEN) 02/02/19 13:15 Urine Bacteria MANY /hpf (NONE SEEN) H 02/02/19 13:15 - Physical Exam Vitals and I&O: Vital Signs Temp 98.2 F 02/04/19 20:00 Pulse 62 02/04/19 20:00 Resp 18 02/04/19 20:00 BP 109/72 02/04/19 20:00 Pulse Ox 93 02/04/19 20:00 Intake & Output 02/04/19 02/04/19 02/05/19 06:59 18:59 06:59 Intake Total 1350 1600 Balance 1350 1600 Weight (lbs) 130 lb 130 lb Intake: Intake, IV Amount 1050 1000 Cefepime 1 gm In Dextrose 50 5% 50 ml @ 100 mls/hr IV Q12H [facility] Rx#:[id number] D5-0.9%Ns 1,000 ml @ 80 1000 1000 mls/hr IV .[id number] [facility] Rx #:[id number] Tube Feeding 240 600 Other 60 Other: # Voids 5 # Bowel Movements 0 1 Weight Source Estimated Bedscale Active Medications: Current Medications Albuterol Sulfate (Albuterol 2.5mg/3ml Neb Ud) 2.5 mg HHN Q2HRT PRN PRN Reason: Shortness of Breath or Wheeze Stop: 04/03/19 15:24 Amlodipine Besylate (Norvasc) 5 mg PO DAILY [facility] Stop: 04/05/19 13:12 Last Admin: 02/04/19 15:18 Dose: 5 mg Bisacodyl (Dulcolax 10 Mg Supp) 10 mg RC PRN PRN PRN Reason: IF MOM INEFFECTIVE Stop: 04/03/19 15:20 Bisacodyl (Dulcolax 10 Mg Supp) 10 mg RC MWF [facility] Stop: 04/05/19 08:59 Last Admin: 02/04/19 08:25 Dose: 10 mg Calcitonin [place] (Miacalcin) 200 iu NS DAILY [facility] Stop: 04/04/19 08:59 Last Admin: 02/04/19 08:34 Dose: 200 iu Calcium Carbonate (Calcium Carb) 1,200 mg PO TID [facility] Stop: 04/03/19 20:59 Last Admin: 02/04/19 20:55 Dose: 1,200 mg Docusate Sodium (Colace) 250 mg PO BID [facility] Stop: 04/03/19 16:59 Last Admin: 02/04/19 16:14 Dose: 250 mg Guaifenesin (Robitussin) 200 mg PO Q4HR PRN PRN Reason: Cough or Congestion Stop: 04/03/19 15:24 Cefepime HCl 1 gm/ Dextrose 50 mls @ 100 mls/hr IV Q12H [facility] Stop: 04/03/19 15:29 Last Admin: 02/04/19 15:57 Dose: 100 mls/hr Ipratropium [place] (Atrovent Neb 0.5mg/2.5ml) 0.5 mg IH Q2HRT PRN PRN Reason: Shortness of Breath or Wheeze Stop: 04/03/19 15:24 Lactobacillus Rhamnosus (Culturelle 15b) 1 each GT DAILY [facility] Stop: 04/04/19 08:59 Last Admin: 02/04/19 08:24 Dose: 1 each Levetiracetam (Keppra) 750 mg GT BID [facility] Stop: 04/03/19 16:59 Last Admin: 02/04/19 16:14 Dose: 750 mg Magnesium Hydroxide (Milk Of Magnesia) 30 ml GT Q72H PRN PRN Reason: IF NO BM IN THREE DAYS Stop: 04/03/19 15:20 Morphine Sulfate (Morphine) 2 mg IVP Q4H PRN PRN Reason: Pain (Severe) Stop: 04/03/19 15:24 Multivitamins/Minerals (Theragran M) 15 ml GT DAILY [facility] Stop: 04/04/19 08:59 Last Admin: 02/04/19 08:23 Dose: 15 ml Naproxen (Naprosyn) 250 mg GT TID PRN PRN Reason: FOR MENSES CYCLE Stop: 04/03/19 15:20 Ondansetron HCl (Zofran) 4 mg IV Q8H PRN PRN Reason: Nausea / Vomiting Stop: 04/03/19 15:24 Oxcarbazepine (Trileptal) 900 mg GT BID [facility] Stop: 04/04/19 08:59 Last Admin: 02/04/19 16:14 Dose: 900 mg Pantoprazole Sodium (Protonix) 40 mg PO DAILY [facility] Stop: 04/04/19 08:59 Last Admin: 02/04/19 08:24 Dose: 40 mg Polyethylene Glycol (Miralax) 17 gm GT MWF [facility] Stop: 04/05/19 08:59 Last Admin: 02/04/19 08:23 Dose: 17 gm Vitamin D (Vitamin D) 1,000 iu GT DAILY [facility] Stop: 04/04/19 08:59 Last Admin: 02/04/19 08:23 Dose: 1,000 iu Assessment/Plan - Problem List Patient Problems: All Active Problems RENAL AND KIDNEY STONES WITH ABN LABS (Acute) Nutritional Asmnt/Malnutr-PDOC - Dietary Evaluation Malnutrition Findings (Please click <Entered> for more info): Nutritional Asmnt/Malnutrition Start: 02/04/19 19: 19 Text: Status: Active Freq: Protocol: Document 02/04/19 19:19 [email or web address] (Rec: 02/04/19 19:35 [email or web address]) Nutritional Asmnt/Malnutrition Patient General Information Nutritional Screening High Risk Consult Current Diet Order/ Nutrition Support Jevity 1.2 @ 40mL ; D5 .9% @ 80mL Pertinent Medications Dulcolax PRN, docusate, MOM, probiotic, miralax, Zofran Pertinent Labs Na 135 L Trending up BUN 6 L Creatinine 0.3 L Glucose 111 H Nutritional Hx/Data Height 4 ft 9 in Height (Calculated Centimeters) 144.8 Current Weight (lbs) 130 lb Weight (Calculated Kilograms) 59.0 Weight (Calculated Grams) 38444.0 [place] Body Weight 85-115lbs Body Mass Index (BMI) 28.1 Recent Weight Change No Weight Status Approriate GI Symptoms Food Allergies No Usual diet at home Gtube Skin Integrity/Comment: Chronic unstageable PU L Posterior heel Estimated Nutritional Goals BEE in Kcals: Using Current wt Calories/Kcals/Kg 25-30kcals/kg body weight 59kg Kcals Calculated 1477-1772kcals/day Protein: Using Current wt Protein g/k.8-1g/kg Protein Calculated 47-59g/day Fluid: ml 1477-1772mL/day Nutritional Problem No current Nutrition Prob Problem No current nutrition diagnosis . Malnutrition Related to Morbid Obesity Malnutrition related to morbid obesity No Intervention/Recommendation Comments Continue Jevity 1.2 @ 40mL Expected Outcomes/Goals Expected Outcomes/Goals Continue current TF.
[2019-02-05] MEDS: Levetiracetam 500 mg/5mL 5mL UDSyr *for ORAL USE ONLY GT SCH (09:28)
[2019-02-05] MEDS: Multivitamin w/ Minerals 15 mL UDC GT SCH (09:32)
[2019-02-05] MEDS: Lactobacillus Rhamnosus GG 15 Billion CFU CAP.SPRINK GT SCH (09:34)
[2019-02-05] MEDS: Pantoprazole 40 mg EC Tab PO SCH (09:35)
[2019-02-05] MEDS: Calcitonin (Salmon) 200 Iu/Actuation 3.7mL NS SCH (09:35)
--- NOTE | 2019-02-05 13:36 | Discharge Summary ---
DATE OF DISCHARGE: 02/05/2019 CHIEF COMPLAINT: Abdominal pain and fever. FINAL DIAGNOSES: 1. Urinary tract infection. 2. Gallstone. 3. Abdominal pain, which is resolved. 4. Alkaline abnormalities. 5. Elevated lactic acid, which was resolved. 6. Mental retardation. 7. Cerebral palsy. 8. Seizure. 9. Constipation. HISTORY: This is a 53-year-old female with history of mental retardation/cerebral palsy, seizure disorder, constipation, admitted from nursing facility secondary to abdominal pain and discomfort. According to mother, the patient had known diagnosis of gallstone. The patient was admitted for further management. PHYSICAL EXAMINATION: VITAL SIGNS: Blood pressure 151/90, respiratory rate is 18, pulse 77, temperature 97.2. GENERAL: Elderly female, appears chronically ill. NECK: Supple. No mass. LUNGS: Equal breath sounds, few rhonchi. HEART: Regular rate and rhythm without appreciable murmur. ABDOMEN: Soft, globular. EXTREMITIES: Positive excoriation atrophy. NEUROLOGIC: Limited. HOSPITAL COURSE: The patient was admitted to telemetry, continued on bronchodilator treatments and IV antibiotic. The patient had elevated lactic acid on admission. This has improved with hydration, IV antibiotic, HIDA scan was negative for acute cholecystitis. The patient was seen by Dr. Vargas and opted for nonsurgical treatment. This was discussed with the mother. CONDITION ON DISCHARGE: Fair. DISCHARGE INSTRUCTIONS: The patient to continue current treatment. The patient will continue on p.o. antibiotic for duration of treatment. [facility]# [id number]
== END 2019-02-05 15:35 | DRG 444 ==
LOC: ER 11:48 → TELE 14:30
PROVIDERS: ADMIT Internal Medicine; ATTEND Internal Medicine
DX: K80.80 Other cholelithiasis without obstruction (principal); R53.2 Functional quadriplegia; N39.0 Urinary tract infection, site not specified; G40.89 Other seizures; E87.1 Hypo-osmolality and hyponatremia; E87.2 Acidosis; E86.0 Dehydration; F79 Unspecified intellectual disabilities; F03.90 Unspecified dementia, unspecified severity, without behavioral disturbance, psychotic disturbance, mood disturbance, and anxiety; I10 Essential (primary) hypertension; K59.00 Constipation, unspecified; G80.9 Cerebral palsy, unspecified; Z82.49 Family history of ischemic heart disease and other diseases of the circulatory system; Z88.1 Allergy status to other antibiotic agents; Z79.899 Other long term (current) drug therapy
CPT/HCPCS: 36415-UA; 76700-TC; 78226-TC; 80053-TC; 81001-TC; 82150-TC; 82550-TC; 83605; 83690-TC; 83735-TC; 84484-TC; 84703-TC; 85025-TC; 85610-TC; 85730-TC; 87086-90; 93005; 94760; A9537; J0692; J1956; J3475; J7030; J7042; Z7610